=== PATIENT | male | born 1935 | race Caucasian/White ===

== ENCOUNTER 2016-09-30 10:32 | Observation (INO) | payer OTHER ==
[~2016-09-30] VITALS: Ht 180.3 cm; Wt 109.0 kg
[~2016-09-30 10:32] MED LIST: ALDACTONE25 MG PO; ALTACE10 MG PO; AMIODARONE HCL200 MG PO; ASPIRIN81 M1 PO; COUMADIN,JANTOVE1 MG PO; COUMADIN1 MG PO; COUMADIN2.5 MG PO; CRESTOR10 MG PO; DIGOX125 MCG PO; DIGOXIN125 MCG PO; LANOXIN,DIGI0.125 MG PO; LASIX20 MG PO; LOVASTATIN20 MG PO; Lopressor PO; METOPROLOL SUC100 MG PO; METOPROLOL SUCC50 MG PO; METOPROLOL TART50 MG PO; NITROSTAT0.4 MG SL; PACERONE100 MG PO; PACERONE200 M1 PO; RAMIPRIL5 MG PO; RANITIDINE HCL150 M1 PO; TERAZOSIN HCL5 MG PO; TOPROL XL100 MG PO; Tylenol Regular Stre PO; VICODIN 5-3001 EACH PO; WARFARIN SODIU2.5 MG PO; WARFARIN SODIUM5 MG PO; ZANTAC150 MG PO
[2016-09-30 12:41] LABS: EOSINOPHIL (%) 0.6 % (0-5); EOSINOPHIL COUNT 0.1 K/uL (0-0.3); HEMATOCRIT 39.5 % (38.0-50.0); IMMATURE GRANULOCYTE (%) 0.2 % (0.0-0.7); INSTRUMENT ABS NEUTROPHIL CT 6.1 K/uL; LYMPHOCYTE COUNT 1.8 K/uL (1.0-2.8); MCH 29.1 PG (29.0-34.0); MCHC 32.9 G/DL (30.0-36.0); MCV 88.6 FL (86-99); MEAN PLAT.VOLUME 10.5 uM^3 (9.0-12.4); MONOCYTE (%) 8.4 % (3-12); MONOCYTE COUNT 0.7 K/uL (0-0.8); NEUTROPHIL (%) 70.1 % (45-76); NEUTROPHIL COUNT 6.1 K/uL (1.8-6.4); PLATELET COUNT 208 K/uL (156-360); RBC DIS.WIDTH-CV 12.9 % (11.8-14.6); RBC DIS.WIDTH-SD 41.6 % (39-53); RED BLOOD COUNT 4.46 M/uL (4.00-5.50); WHITE BLOOD COUNT 8.7 K/uL (4.1-10.2)
[2016-09-30 12:52] LABS: INTER. NORMALIZED RATIO 1.9; PROTHROMBIN TIME 19.2 (9.2-11.2); PTT 37.6 (25-32)
[2016-09-30 12:57] LABS: CHLORIDE 103 mEq/L (99-109); POTASSIUM 4.1 mEq/L (3.7-5.4); SODIUM 137 mEq/L (136-147)
[2016-09-30 12:58] LABS: MAGNESIUM 2.1 mg/dL (1.3-2.7)
[2016-09-30 12:59] LABS: GLUCOSE 112 mg/dL (70-99)
[2016-09-30 13:01] LABS: ANION GAP 13 MEQ/L (2-14)
[2016-09-30 13:03] LABS: GFR ESTIMATE (CALCULATED) > 59 mL/min/
[2016-09-30 13:04] LABS: UREA NITROGEN (BUN) 13 mg/dL (9-23)
[2016-09-30 13:08] LABS: TROP-I INTERPRETATION NEGATIVE; TROPONIN-I < 0.01 ng/mL (0.0-0.30)
[2016-09-30] MEDS ORDERED: PACERONE200 MG PO (15:11)
[2016-09-30] MEDS ORDERED: HYTRIN5 MG PO (15:15)
[2016-09-30] MEDS ORDERED: LASIX20 MG PO (15:15)
[2016-09-30 16:13] VITALS: BP 179/81
[2016-09-30 19:00] VITALS: BP 151/70
[2016-09-30 19:01] LABS: TROP-I INTERPRETATION NEGATIVE; TROPONIN-I 0.02 ng/mL (0.0-0.30)
[2016-09-30 23:44] VITALS: BP 168/81
[2016-10-01 01:14] LABS: TROP-I INTERPRETATION NEGATIVE; TROPONIN-I < 0.01 ng/mL (0.0-0.30)
[2016-10-01 04:30] VITALS: BP 132/64
[2016-10-01 07:18] VITALS: BP 146/73
[2016-10-01 07:37] LABS: INTER. NORMALIZED RATIO 1.9; PROTHROMBIN TIME 20.1 (9.2-11.2)
== END 2016-10-01 12:05 | disposition home or self-care (01) ==
LOC: EME → EDBD 10:32 → EDOF 14:25 → 5WEST 14:25
PROVIDERS: Emergency Medicine; Student in an Organized Health Care Education/Training Program
DX: R07.9 Chest pain, unspecified (principal); I42.0 Dilated cardiomyopathy; I48.0 Paroxysmal atrial fibrillation; I11.0 Hypertensive heart disease with heart failure; I50.22 Chronic systolic (congestive) heart failure; E78.5 Hyperlipidemia, unspecified; I25.10 Atherosclerotic heart disease of native coronary artery without angina pectoris; K21.9 Gastro-esophageal reflux disease without esophagitis; E66.9 Obesity, unspecified; M19.90 Unspecified osteoarthritis, unspecified site; Z79.01 Long term (current) use of anticoagulants
CPT/HCPCS: 71010; 80048; 83735; 84484; 85025; 85610; 85730; 93005; 99281; 99284; G0378

== ENCOUNTER 2016-12-10 11:12 | Inpatient (IN) | payer OTHER ==
[~2016-12-10] VITALS: Ht 177.8 cm; Wt 110.8 kg
[~2016-12-10 11:12] MED LIST changes: +HYTRIN5 MG PO; +PACERONE200 MG PO
[2016-12-10 13:00] LABS: EOSINOPHIL (%) 0.3 % (0-5); EOSINOPHIL COUNT 0.1 K/uL (0-0.3); IMMATURE GRANULOCYTE (%) 0.5 % (0.0-0.7); IMMATURE GRANULOCYTE COUNT 0.1 K/uL; INSTRUMENT ABS NEUTROPHIL CT 12.4 K/uL; LYMPHOCYTE COUNT 1.1 K/uL (1.0-2.8); MCH 29.4 PG (29.0-34.0); MCHC 33.2 G/DL (30.0-36.0); MCV 88.8 FL (86-99); MONOCYTE (%) 6.8 % (3-12); NEUTROPHIL (%) 84.5 % (45-76); NEUTROPHIL COUNT 12.4 K/uL (1.8-6.4); PLATELET COUNT 198 K/uL (156-360); RBC DIS.WIDTH-CV 12.8 % (11.8-14.6); RBC DIS.WIDTH-SD 41.6 % (39-53); RED BLOOD COUNT 4.28 M/uL (4.00-5.50); WHITE BLOOD COUNT 14.7 K/uL (4.1-10.2)
[2016-12-10 13:08] LABS: INTER. NORMALIZED RATIO 1.7; PROTHROMBIN TIME 17.4 (9.2-11.2)
[2016-12-10 13:09] LABS: CHLORIDE 106 mEq/L (99-109); POTASSIUM 4.3 mEq/L (3.7-5.4); SODIUM 138 mEq/L (136-147)
[2016-12-10 13:11] LABS: GLUCOSE 128 mg/dL (70-99)
[2016-12-10 13:13] LABS: ANION GAP 9 MEQ/L (2-14)
[2016-12-10 13:15] LABS: GFR ESTIMATE (CALCULATED) > 59 mL/min/
[2016-12-10 13:16] LABS: UREA NITROGEN (BUN) 22 mg/dL (9-23)
[2016-12-10] MEDS ORDERED: ALTACE5 MG PO (14:27)
[2016-12-10] MEDS ORDERED: PROTONIX40 MG PO (14:30)
[2016-12-10] MEDS ORDERED: LIPITOR20 MG PO (14:30)
[2016-12-10 18:01] VITALS: BP 181/96
[2016-12-10 20:00] LABS: HEMATOCRIT 35.4 % (38.0-50.0); MCH 29.4 PG (29.0-34.0); MCHC 33.1 G/DL (30.0-36.0); MCV 88.9 FL (86-99); MEAN PLAT.VOLUME 10.6 uM^3 (9.0-12.4); PLATELET COUNT 187 K/uL (156-360); RBC DIS.WIDTH-CV 12.7 % (11.8-14.6); RBC DIS.WIDTH-SD 41.7 % (39-53); RED BLOOD COUNT 3.98 M/uL (4.00-5.50); WHITE BLOOD COUNT 15.3 K/uL (4.1-10.2)
[2016-12-10 23:13] VITALS: BP 118/57
[2016-12-11 00:11] VITALS: BP 125/58
[2016-12-11 04:01] VITALS: BP 126/56
[2016-12-11 04:59] LABS: EOSINOPHIL (%) 0.7 % (0-5); EOSINOPHIL COUNT 0.1 K/uL (0-0.3); HEMATOCRIT 35.3 % (38.0-50.0); IMMATURE GRANULOCYTE (%) 0.5 % (0.0-0.7); IMMATURE GRANULOCYTE COUNT 0.1 K/uL; INSTRUMENT ABS NEUTROPHIL CT 9.1 K/uL; LYMPHOCYTE COUNT 2.1 K/uL (1.0-2.8); MCH 29.8 PG (29.0-34.0); MCHC 33.4 G/DL (30.0-36.0); MCV 89.1 FL (86-99); MEAN PLAT.VOLUME 10.6 uM^3 (9.0-12.4); MONOCYTE (%) 12.5 % (3-12); MONOCYTE COUNT 1.6 K/uL (0-0.8); NEUTROPHIL (%) 70.3 % (45-76); NEUTROPHIL COUNT 9.1 K/uL (1.8-6.4); PLATELET COUNT 186 K/uL (156-360); RBC DIS.WIDTH-SD 42.5 % (39-53); RED BLOOD COUNT 3.96 M/uL (4.00-5.50)
[2016-12-11 05:09] LABS: CHLORIDE 106 mEq/L (99-109); POTASSIUM 4.1 mEq/L (3.7-5.4); SODIUM 138 mEq/L (136-147)
[2016-12-11 05:11] LABS: GLUCOSE 114 mg/dL (70-99); INTER. NORMALIZED RATIO 1.5; PROTHROMBIN TIME 15.2 (9.2-11.2); PTT 77.9 (25-32)
[2016-12-11 05:12] LABS: ANION GAP 10 MEQ/L (2-14)
[2016-12-11 05:15] LABS: GFR ESTIMATE (CALCULATED) > 59 mL/min/; UREA NITROGEN (BUN) 27 mg/dL (9-23)
[2016-12-11 07:43] VITALS: BP 142/66
[2016-12-11 15:31] VITALS: BP 138/63
[2016-12-11 19:30] VITALS: BP 155/70
[2016-12-11 23:20] VITALS: BP 119/56
[2016-12-12 03:30] VITALS: BP 129/59
[2016-12-12 07:05] LABS: EOSINOPHIL (%) 2.2 % (0-5); EOSINOPHIL COUNT 0.3 K/uL (0-0.3); HEMATOCRIT 32.2 % (38.0-50.0); IMMATURE GRANULOCYTE (%) 0.3 % (0.0-0.7); INSTRUMENT ABS NEUTROPHIL CT 7.1 K/uL; LYMPHOCYTE COUNT 2.3 K/uL (1.0-2.8); MCH 30.9 PG (29.0-34.0); MCHC 33.9 G/DL (30.0-36.0); MCV 91.2 FL (86-99); MEAN PLAT.VOLUME 11.4 uM^3 (9.0-12.4); MONOCYTE (%) 13.9 % (3-12); MONOCYTE COUNT 1.6 K/uL (0-0.8); NEUTROPHIL (%) 62.8 % (45-76); NEUTROPHIL COUNT 7.1 K/uL (1.8-6.4); PLATELET COUNT 178 K/uL (156-360); RBC DIS.WIDTH-CV 13.3 % (11.8-14.6); RBC DIS.WIDTH-SD 44.6 % (39-53); RED BLOOD COUNT 3.53 M/uL (4.00-5.50); WHITE BLOOD COUNT 11.3 K/uL (4.1-10.2)
[2016-12-12 07:23] LABS: INTER. NORMALIZED RATIO 1.4; PROTHROMBIN TIME 14.6 (9.2-11.2); PTT 47.7 (25-32)
[2016-12-12 07:37] LABS: ALKALINE PHOSPHATASE 72 IU/L (3-129); ANION GAP 7 MEQ/L (2-14); CHLORIDE 106 MEQ/L (99-109); GFR ESTIMATE (CALCULATED) > 59 mL/min/; GLUCOSE 102 mg/dL (70-99); SAMPLE HEMOLYSIS CHECK 0; SAMPLE ICTERIC CHECK 0; SAMPLE LIPEMIA CHECK 0; SODIUM 139 MEQ/L (136-147); TOTAL BILIRUBIN 0.9 MG/DL (0.0-1.0); UREA NITROGEN (BUN) 18 mg/dL (9-23)
[2016-12-12 07:39] VITALS: BP 129/60
[2016-12-12 12:12] VITALS: BP 133/76
[2016-12-12 16:34] VITALS: BP 164/71
[2016-12-12 20:46] VITALS: BP 159/74
[2016-12-12 23:41] VITALS: BP 133/61
[2016-12-13 03:42] VITALS: BP 146/65
[2016-12-13 05:45] LABS: INTER. NORMALIZED RATIO 1.5; PROTHROMBIN TIME 15.9 (9.2-11.2)
[2016-12-13 05:53] LABS: EOSINOPHIL (%) 0 % (0-5); HEMATOCRIT 31.7 % (38.0-50.0); IMMATURE GRANULOCYTE (%) 0.6 % (0.0-0.7); IMMATURE GRANULOCYTE COUNT 0.1 K/uL; INSTRUMENT ABS NEUTROPHIL CT 12.7 K/uL; LYMPHOCYTE COUNT 0.7 K/uL (1.0-2.8); MCH 30.5 PG (29.0-34.0); MCHC 33.4 G/DL (30.0-36.0); MCV 91.4 FL (86-99); MEAN PLAT.VOLUME 11.3 uM^3 (9.0-12.4); MONOCYTE (%) 6.7 % (3-12); NEUTROPHIL (%) 87.9 % (45-76); NEUTROPHIL COUNT 12.7 K/uL (1.8-6.4); PLATELET COUNT 180 K/uL (156-360); RBC DIS.WIDTH-CV 12.9 % (11.8-14.6); RBC DIS.WIDTH-SD 42.6 % (39-53); RED BLOOD COUNT 3.47 M/uL (4.00-5.50); WHITE BLOOD COUNT 14.5 K/uL (4.1-10.2)
[2016-12-13 07:34] VITALS: BP 149/65
[2016-12-13 11:47] VITALS: BP 152/80
[2016-12-13 13:37] LABS: BILIRUBIN NEGATIVE; BLOOD NEGATIVE; COLOR YELLOW ((YELLOW)); GLUCOSE (STRIP) NEGATIVE; KETONES NEGATIVE; NITRITE NEGATIVE; PROTEIN (STRIP) NEGATIVE; SPECIFIC GRAVITY 1.031 (1.000-1.030); UROBILINOGEN 0.2 MG/DL (0.2-1.0)
[2016-12-13 13:40] LABS: ADD MIUA? NO; LEUKOCYTES NEGATIVE; UCUL ADDED? NO
[2016-12-13 15:44] VITALS: BP 137/73
[2016-12-13 20:46] VITALS: BP 139/63
[2016-12-14 00:33] VITALS: BP 168/72
[2016-12-14 05:13] VITALS: BP 175/81
[2016-12-14 07:16] LABS: MCV 91.5 FL (86-99)
[2016-12-14 07:59] LABS: INTER. NORMALIZED RATIO 1.8; PROTHROMBIN TIME 18.5 (9.2-11.2)
[2016-12-14 09:18] VITALS: BP 175/77
[2016-12-14 11:28] VITALS: BP 154/67
[2016-12-14 16:34] VITALS: BP 156/71
[2016-12-14 20:00] VITALS: BP 130/63
[2016-12-15] VITALS: BP 122/60
[2016-12-15 04:00] VITALS: BP 150/64
[2016-12-15 06:40] LABS: EOSINOPHIL (%) 0.8 % (0-5); EOSINOPHIL COUNT 0.1 K/uL (0-0.3); HEMATOCRIT 28.8 % (38.0-50.0); IMMATURE GRANULOCYTE (%) 0.5 % (0.0-0.7); IMMATURE GRANULOCYTE COUNT 0.1 K/uL; INSTRUMENT ABS NEUTROPHIL CT 8.7 K/uL; LYMPHOCYTE COUNT 1.8 K/uL (1.0-2.8); MCH 30.7 PG (29.0-34.0); MCHC 33.7 G/DL (30.0-36.0); MCV 91.1 FL (86-99); MEAN PLAT.VOLUME 10.6 uM^3 (9.0-12.4); MONOCYTE (%) 17.1 % (3-12); MONOCYTE COUNT 2.2 K/uL (0-0.8); NEUTROPHIL (%) 67.6 % (45-76); NEUTROPHIL COUNT 8.7 K/uL (1.8-6.4); PLATELET COUNT 184 K/uL (156-360); RBC DIS.WIDTH-CV 13.3 % (11.8-14.6); RBC DIS.WIDTH-SD 44.1 % (39-53); RED BLOOD COUNT 3.16 M/uL (4.00-5.50); WHITE BLOOD COUNT 12.9 K/uL (4.1-10.2)
[2016-12-15 07:08] LABS: ALKALINE PHOSPHATASE 63 IU/L (3-129); ANION GAP 8 MEQ/L (2-14); CHLORIDE 107 MEQ/L (99-109); GFR ESTIMATE (CALCULATED) > 59 mL/min/; GLUCOSE 100 mg/dL (70-99); POTASSIUM 4.4 MEQ/L (3.7-5.4); SAMPLE HEMOLYSIS CHECK 0; SAMPLE ICTERIC CHECK 0; SAMPLE LIPEMIA CHECK 0; SODIUM 140 MEQ/L (136-147); UREA NITROGEN (BUN) 23 mg/dL (9-23)
[2016-12-15 07:10] LABS: INTER. NORMALIZED RATIO 2.2; PROTHROMBIN TIME 22.6 (9.2-11.2)
[2016-12-15 07:25] VITALS: BP 146/61
[2016-12-15 16:05] VITALS: BP 137/58
[2016-12-15 20:22] VITALS: BP 141/65
[2016-12-16 00:26] VITALS: BP 141/81
[2016-12-16 03:54] VITALS: BP 131/63
[2016-12-16 07:06] LABS: EOSINOPHIL (%) 1.5 % (0-5); EOSINOPHIL COUNT 0.2 K/uL (0-0.3); HEMATOCRIT 29.1 % (38.0-50.0); IMMATURE GRANULOCYTE (%) 0.6 % (0.0-0.7); IMMATURE GRANULOCYTE COUNT 0.1 K/uL; INSTRUMENT ABS NEUTROPHIL CT 8.6 K/uL; LYMPHOCYTE COUNT 1.9 K/uL (1.0-2.8); MCH 30.1 PG (29.0-34.0); MCV 91.2 FL (86-99); MEAN PLAT.VOLUME 10.8 uM^3 (9.0-12.4); MONOCYTE (%) 14.7 % (3-12); MONOCYTE COUNT 1.9 K/uL (0-0.8); NEUTROPHIL (%) 68.1 % (45-76); NEUTROPHIL COUNT 8.6 K/uL (1.8-6.4); PLATELET COUNT 207 K/uL (156-360); RBC DIS.WIDTH-SD 43.3 % (39-53); RED BLOOD COUNT 3.19 M/uL (4.00-5.50); WHITE BLOOD COUNT 12.6 K/uL (4.1-10.2)
[2016-12-16 07:24] LABS: INTER. NORMALIZED RATIO 2.3; PROTHROMBIN TIME 23.5 (9.2-11.2)
[2016-12-16 07:30] VITALS: BP 141/64
[2016-12-16 11:45] VITALS: BP 138/67
[2016-12-16] MEDS ORDERED: COUMADIN2 MG PO (14:08)
[2016-12-16] MEDS ORDERED: DOCUSATE SODIU100 MG PO (14:08)
[2016-12-16] MEDS ORDERED: ENDOCET 5-3251 EACH PO (14:08)
== END 2016-12-16 16:38 | DRG 536 ==
LOC: EME 11:12 → EDOF 14:30 → 3EAST 14:30
PROVIDERS: Emergency Medicine; Hospitalist; Internal Medicine; Nurse Practitioner Adult Health; Orthopaedic Surgery Hand Surgery; Physician Assistant
PROC: 0SS934Z Reposition Right Hip Joint with Internal Fixation Device, Percutaneous Approach (ICD-10-PCS; principal; 2016-12-12)
DX: S72.141A Displaced intertrochanteric fracture of right femur, initial encounter for closed fracture (principal); E78.5 Hyperlipidemia, unspecified; I25.10 Atherosclerotic heart disease of native coronary artery without angina pectoris; I42.0 Dilated cardiomyopathy; I48.0 Paroxysmal atrial fibrillation; Z96.653 Presence of artificial knee joint, bilateral; Z95.810 Presence of automatic (implantable) cardiac defibrillator; Z79.01 Long term (current) use of anticoagulants; I50.22 Chronic systolic (congestive) heart failure; I11.0 Hypertensive heart disease with heart failure; Z66 Do not resuscitate; W01.0XXA Fall on same level from slipping, tripping and stumbling without subsequent striking against object, initial encounter; Y93.01 Activity, walking, marching and hiking; Z87.891 Personal history of nicotine dependence; K21.9 Gastro-esophageal reflux disease without esophagitis; I27.2 Other secondary pulmonary hypertension; E66.9 Obesity, unspecified; Z68.35 Body mass index [BMI] 35.0-35.9, adult; F41.9 Anxiety disorder, unspecified
CPT/HCPCS: 70450; 71010; 73501; 73502; 76000; 80048; 80053; 80162; 81003; 85014; 85018; 85025; 85027; 85610; 85730; 86900; 86901; 93005; 97530 GP; 99202; 99281; 99284; C1713; J0131; J0330; J0690; J1100; J1170; J1644; J1650; J1885; J2270; J2405; J2710; J2765; J3010; J7120; S0028